=== PATIENT | female | born 1935 | race Caucasian/White ===

== ENCOUNTER → 2016-12-22 | Outpatient (CLI) | payer MEDICARE, OTHER | END | disposition home or self-care (01) | LOC: GMA 16:27 | PROVIDERS: ATTEND Physician Assistant | DX: N39.0 Urinary tract infection, site not specified (principal) ==

== ENCOUNTER → 2017-01-07 | Outpatient (CLI) | payer MEDICARE, OTHER | END | disposition home or self-care (01) | LOC: GMAL 11:00 | PROVIDERS: ATTEND Family Medicine | DX: N39.0 Urinary tract infection, site not specified (principal) ==

== ENCOUNTER → 2017-01-26 | Outpatient (CLI) | payer MEDICARE, OTHER | END | disposition home or self-care (01) | LOC: GMAL 10:18 | PROVIDERS: ATTEND Family Medicine | DX: R53.82 Chronic fatigue, unspecified (principal); D51.3 Other dietary vitamin B12 deficiency anemia; E55.9 Vitamin D deficiency, unspecified ==

== ENCOUNTER → 2017-05-13 | Outpatient (CLI) | payer MEDICARE, OTHER | LOC: BFHH 15:08 | PROVIDERS: ATTEND Family Medicine | DX: R30.0 Dysuria (principal); R39.15 Urgency of urination ==

== ENCOUNTER → 2017-05-18 | Outpatient (CLI) | payer MEDICARE, OTHER | LOC: GMAL 10:31 | PROVIDERS: ATTEND Family Medicine | DX: E55.9 Vitamin D deficiency, unspecified (principal) ==

== ENCOUNTER → 2017-05-28 | Outpatient (CLI) | payer MEDICARE, OTHER | LOC: BFHH 14:16 | PROVIDERS: ATTEND Family Medicine | DX: N39.0 Urinary tract infection, site not specified (principal) ==

== ENCOUNTER → 2017-06-01 | Outpatient (CLI) | payer MEDICARE, OTHER ==
--- NOTE | 2017-06-02 09:54 | MAM ---
EXAM DESCRIPTION: 3D Screening BILATERAL : Digital Mammography. CLINICAL HISTORY: 82 years Female SCREENING . No complaints. No family history breast cancer. Postmenopausal. Taking HRT 5 or more years ago. Left breast biopsy.. COMPARISON: Baseline study at this facility. No prior reports available. TECHNIQUE: Bilateral CC and MLO projection full-field images, 3-D tomosynthesis digital mammographic technique. Also bilateral synthesized CC/ MLO full-field images. CAD not utilized. Technically difficult study because of patient inability to stand and decreased range of motion right shoulder. FINDINGS: The breast parenchymal density pattern is: Scattered areas of fibroglandular density. No skin thickening or nipple retraction bilateral solitary coarse calcifications and microcalcifications. Left axillary lymph nodes. Bilateral vascular calcifications. Focal asymmetry at the 600 clock position of the posterior third of the right breast approximately 8 cm from the nipple near the chest wall. Not associated with microcalcifications.. No focal, stellate mass or density, focal asymmetry , and no suspicious microcalcifications left breast. IMPRESSION: BI-RADS CATEGORY: 0 - INCOMPLETE- Need additional imaging evaluation. FOLLOW-UP: Recall for additional imaging: Bilateral full-field 3-D tomosynthesis LM images. Targeted ultrasound posterior inferior right breast in the region of interest.. Written communication concerning the IMPRESSION and Follow-up, will be mailed to the patient and referring health care provider. Electronically signed by: Charles Harris MD 06/02/2017 9:53 AM [employer]
== END ==
LOC: MAMMO 11:00
PROVIDERS: ATTEND Family Medicine
DX: Z12.31 Encounter for screening mammogram for malignant neoplasm of breast (principal)

== ENCOUNTER → 2017-06-22 | Outpatient (CLI) | payer MEDICARE, OTHER ==
--- NOTE | 2017-06-22 16:35 | US ---
EXAM DESCRIPTION: Breast,Right: Ultrasound CLINICAL HISTORY: 82 yearsFemaleABNORMAL MAMMO. Focal asymmetry posterior right breast. COMPARISON: Digital bilateral 3-D diagnostic tomosynthesis on this visit. Bilateral 3-D tomosynthesis screening 06/01/2017. TECHNIQUE: Transcutaneous scanning of the posterior third right breast utilizing two-dimensional and Doppler modes. Scanning performed by the drywall mechanic and Dr. Harris. FINDINGS: Scanning at the 600-1200 clock position 5 cm from the nipple. Mostly fatty homogeneous echogenicity with scattered fibroglandular tissues. No skin changes. No distinct solid mass. No cyst. No large calcifications. No parenchymal edema. IMPRESSION: 1. Bi-Rads Category 2: Benign. 2. Please refer to bilateral 3-D diagnostic tomosynthesis mammographic examination on this visit. The FINDINGS and the FOLLOW-UP plan were reviewed in person with the patient after the examination. Written communication explaining the IMPRESSION and FOLLOW-UP will be mailed to the patient and referring care provider. Electronically signed by: Charles Harris MD 06/22/2017 4:34 PM CDT
--- NOTE | 2017-06-22 16:35 | MAM ---
EXAM DESCRIPTION: 3D Diagnostic, Bilateral: Digital Mammography CLINICAL HISTORY: 82 yearsFemaleABNORMAL MAMMO . Focal asymmetry posterior right breast.. COMPARISON: Bilateral 3-D tomosynthesis screening study 06/01/2017. Targeted right breast ultrasound following this examination.. Report from prior examination also reviewed. TECHNIQUE: Left LM and right ML projection full-field images, 3-D tomosynthesis digital mammographic technique. Also left synthesized LM and right ML full-field images. CAD not utilized.. Note: patient unable to stand and right arm "frozen shoulder." FINDINGS: The breast parenchymal density pattern is: Scattered areas of fibroglandular density. No skin thickening or nipple retraction focal asymmetry in the posterior right breast at the 600 clock position is not well visualized. ULTRASOUND: Scanning at the 600-1200 clock position 5 cm from the nipple. Mostly fatty homogeneous echogenicity with scattered fibroglandular tissues. No skin changes. No distinct solid mass. No cyst. No large calcifications. No parenchymal edema. IMPRESSION: BI-RADS CATEGORY: 2 - BENIGN FINDINGS. FOLLOW UP: Return to routine digital bilateral screening, one year interval from May 2017. The FINDINGS and the FOLLOW-UP plan were reviewed in person with the patient after the examination. Written communication explaining the IMPRESSION and FOLLOW-UP will be mailed to the patient and referring care provider. According to the [employer], yearly mammograms are recommended starting at age 40 and continuing as long as a woman is in good health. Any breast change noted on a breast self-exam should be reported promptly to the patient's healthcare provider. Breast MRI is recommended for women with an approximately 20-25% or greater lifetime risk of breast cancer, including women with a strong family history of breast or ovarian cancer and women who have been treated for Hodgkin's disease. A negative mammographic report should not delay tissue diagnosis in patients with significant clinical history or physical findings. Extremely dense breast tissue limits the sensitivity of digital mammography. Electronically signed by: Charles Harris MD 06/22/2017 4:35 PM CDT
== END ==
LOC: MAMMO 14:02
PROVIDERS: ATTEND Family Medicine
DX: R92.8 Other abnormal and inconclusive findings on diagnostic imaging of breast (principal)
CPT/HCPCS: 76641; 77066; G0279

== ENCOUNTER → 2018-06-16 | Outpatient (CLI) | payer MEDICARE, OTHER ==
--- NOTE | 2018-06-21 09:55 | MAM ---
EXAM DESCRIPTION: 3D Screening BILATERAL : Digital Mammography. CLINICAL HISTORY: 83 years Female SCREENING . No complaints. No personal or family history of breast cancer. Childbirth. Postmenopausal. No HRT. Prior benign left breast biopsy. Lifetime risk of developing breast cancer (Tyrer-Cuzick model)(%): 1.7. COMPARISON: Bilateral screening digital breast tomosynthesis 06/01/2017. Bilateral diagnostic digital breast tomosynthesis 06/22/2017. TECHNIQUE: Bilateral CC and MLO projection full-field images, digital tomosynthesis mammographic technique. Bilateral digital 2-D full-field MLO images. CAD not available for tomosynthesis or 2-D images. FINDINGS: The breast parenchymal density pattern is: Scattered areas of fibroglandular density. No skin thickening or nipple retraction. Bilateral solitary microcalcifications and coarse calcifications with one small group of microcalcifications in the retroareolar left breast. Left axillary lymph node. Bilateral vascular calcifications. Focal asymmetry lateral to the right nipple in the retroareolar area, best seen on the MLO tomosynthesis. No new focal, stellate mass or density, focal asymmetry , and no suspicious microcalcifications left breast. IMPRESSION: BI-RADS CATEGORY: 0 - INCOMPLETE- Need additional imaging evaluation. FOLLOW-UP: Recall for additional imaging: Orthogonal digital tomosynthesis left breast. Targeted left breast ultrasound of the region of interest.. Written communication concerning the IMPRESSION and Follow-up, will be mailed to the patient and referring health care provider. Electronically signed by: Charles Harris MD 06/21/2018 9:52 AM CDT
== END ==
LOC: MAMMO 13:30
PROVIDERS: ATTEND Family Medicine
DX: Z12.31 Encounter for screening mammogram for malignant neoplasm of breast (principal)

== ENCOUNTER → 2018-08-15 | Outpatient (CLI) | payer MEDICARE, OTHER | LOC: GMAL 10:53 | PROVIDERS: ATTEND Family Medicine | DX: R53.82 Chronic fatigue, unspecified (principal) ==

== ENCOUNTER 2019-04-08 03:18 | Emergency (ER) | payer MEDICARE, OTHER ==
[2019-04-08 03:37] VITALS: O2SAT 94
--- NOTE | 2019-04-08 03:49 | ED.PDOC ---
History of Present Illness - General Chief Complaint: Respiratory Problem Stated Complaint: cough Time Seen by Provider: 04/08/19 03:46 Source: patient, RN notes reviewed, Vital Signs reviewed Additional Information: Patient presents for evaluation of cough and congestion that has been present for two weeks. She does endorse the cough being productive with white to yellowish sputum. She denies any fevers, chills, nausea, vomiting, chest pain or SOB. She lives at an assisted facility and endorses sick contacts. She notes that the cough is improving. - History of Present Illness Allergies/Adverse Reactions: Allergies Amlodipine Allergy (Verified 04/08/19 03:36) Ciprofloxacin [From Cipro] Allergy (Verified 04/08/19 03:36) Penicillin G Allergy (Verified 04/08/19 03:36) Sulfa Antibiotics Allergy (Verified 04/08/19 03:36) Home Medications: Ambulatory Orders ALPRAZolam [Xanax] 0.25 mg PO BEDTIME 04/08/19 Aspirin [Karina Low Dose] 81 mg PO DAILY 04/08/19 Azithromycin Tab [Zithromax Tab] 500 mg PO DAILY 5 Days #10 tab 04/08/19 Brimonidine Tartrate-Timolol M [Combigan 0.2-0.5 %] 1 rosemarie OP BID 04/08/19 HYDROcodone 7.5MG/APAP 325MG [[place] 7.5/325] 1 ea PO PRN 04/08/19 Latanoprost 0.005% Ophth [Xalatan 0.005% Ophthalmic Drops] 2.5 ml OPHTH BEDTIME 04/08/19 Lisinopril 20 mg PO DAILY 04/08/19 Melatonin 5 mg PO PRN 04/08/19 Metoprolol Succinate [Toprol Xl] 25 mg PO BID 04/08/19 Metoprolol Tartrate 50 mg PO BID 04/08/19 Polyethylene Glycol-Propylene [Systane Ultra 0.4-0.3 %] 1 rosemarie OP PRN PRN 04/08/19 Simvastatin 40 mg PO BEDTIME 04/08/19 hydrALAZINE HCl [(None)] 25 mg PO BEDTIME 04/08/19 Review of Systems - Review of Systems Constitutional: Denies: chills, fever EENTM: States: nose congestion Respiratory: States: cough. Denies: short of breath Cardiology: Denies: chest pain Gastrointestinal/Abdominal: Denies: abdominal pain Genitourinary: Denies: frequency Musculoskeletal: Denies: back pain Skin: Denies: rash Neurological: Denies: headache Past Medical History (General) - Patient Medical History Hx Seizures: No Hx Stroke: Yes - 2005 Hx Dementia: No Hx Asthma: No Hx of COPD: No Hx Cardiac Disorders: No Hx Congestive Heart Failure: No Hx Pacemaker: No Hx Hypertension: Yes Hx Thyroid Disease: No Hx Diabetes: No Hx Gastroesophageal Reflux: No Hx Renal Disease: No Hx Cancer: No Hx of HIV: No Hx Hepatitis C: No Hx MRSA: No MRSA Source:: Wound - Vaccination History Hx Tetanus, Diphtheria Vaccination: No Hx Influenza Vaccination: Yes - 2016 Hx Pneumococcal Vaccination: Yes - Social History Hx Tobacco Use: No Hx Chewing Tobacco Use: No Hx Alcohol Use: No Hx Substance Use: No Hx Substance Use Treatment: No Hx Depression: No Hx Physical Abuse: No Hx Emotional Abuse: No - Activities of Daily Living Group Home/Assisted Living (if applicable):: [facility] - Female History Patient is a Female of Child Bearing Age (10 -59 yrs old): No Family Medical History - Family History Mother Family History: Unknown Living Status: Physical Exam - Physical Exam General Appearance: Alert, Comfortable, No apparent distress, Well Developed, Well Groomed, Well Hydrated, Well Nourished ENT Exam: nasal drainage Neck: non-tender, full range of motion, supple, normal inspection Respiratory: lungs clear, normal breath sounds, no respiratory distress, no accessory muscle use, respiratory distress Cardiovascular/Chest: normal peripheral pulses, regular rate, rhythm, no edema, no gallop, no murmur Gastrointestinal/Abdominal: normal bowel sounds, non tender, soft, no organomegaly Extremity: non-tender, no pedal edema, no calf tenderness Neurologic: alert, normal mood/affect, oriented x 3 Progress - Progress Progress: Patient presents for evaluation of coughing. She notes that she feels well, the snf sent her in for evaluation. Exam was not suggestive of underlying pneumonia but given prolonged symptoms, will obtain CXR. CXR was significant for possible retrocardiac infiltrate that is developing pneumonia. Patient is unsure of antibiotic allergies but has documentation in chart of sulfa, penicillins and ciprofloxacin. Will use azithromycin x 5 days. Will follow-up with PCP for re-evaluation. Departure - Departure Clinical Impression: Pneumonia Qualifiers: Pneumonia type: due to unspecified organism Laterality: unspecified laterality Lung location: unspecified part of lung Qualified Code(s): J18.9 - Pneumonia, unspecified organism Time of Disposition: : Disposition: Discharge to Asst Living Condition: Fair Departure Forms: ED Discharge - Pt. Copy, Patient Portal Self Enrollment Instructions: DI for Pneumonia -- Adult Referrals: Gael Nunn III, MD [Primary Care Provider] - 1-2 Weeks Prescriptions: Azithromycin Tab [Zithromax Tab] 500 mg PO DAILY 5 Days #10 tab Home Medications: Ambulatory Orders ALPRAZolam [Xanax] 0.25 mg PO BEDTIME 04/08/19 Aspirin [Karina Low Dose] 81 mg PO DAILY 04/08/19 Azithromycin Tab [Zithromax Tab] 500 mg PO DAILY 5 Days #10 tab 04/08/19 Brimonidine Tartrate-Timolol M [Combigan 0.2-0.5 %] 1 rosemarie OP BID 04/08/19 HYDROcodone 7.5MG/APAP 325MG [[place] 7.5/325] 1 ea PO PRN 04/08/19 Latanoprost 0.005% Ophth [Xalatan 0.005% Ophthalmic Drops] 2.5 ml OPHTH BEDTIME 04/08/19 Lisinopril 20 mg PO DAILY 04/08/19 Melatonin 5 mg PO PRN 04/08/19 Metoprolol Succinate [Toprol Xl] 25 mg PO BID 04/08/19 Metoprolol Tartrate 50 mg PO BID 04/08/19 Polyethylene Glycol-Propylene [Systane Ultra 0.4-0.3 %] 1 rosemarie OP PRN PRN 04/08/19 Simvastatin 40 mg PO BEDTIME 04/08/19 hydrALAZINE HCl [(None)] 25 mg PO BEDTIME 04/08/19
--- NOTE | 2019-04-08 04:31 | RAD ---
EXAM DESCRIPTION: X-ray two view chest. CLINICAL HISTORY: 83 years Female, cough COMPARISON: None. TECHNIQUE: PA and Lateral views of the chest performed on 04/08/2019 at 3:40 AM FINDINGS: The lungs are well expanded and are clear. The costophrenic sulci are clear. There is no evidence of a pneumothorax. There is mild fibrosis and/or atelectasis in the lung bases. The cardiac silhouette is normal in size. There are atherosclerotic calcifications along the thoracic aorta. The mediastinal contours are normal. No acute osseous abnormalities are identified. No focal soft tissue abnormalities are identified. IMPRESSION: No definite acute intrathoracic disease. There is mild fibrosis and/or atelectasis in the lung bases. Electronically signed by: Tessa Farris DO 04/08/2019 4:29 AM [facility]
[2019-04-08 04:44] VITALS: BP 190/84; TEMP 98.2
== END 2019-04-08 04:30 ==
LOC: ER 03:18
DX: J18.9 Pneumonia, unspecified organism (principal); I10 Essential (primary) hypertension; Z86.73 Personal history of transient ischemic attack (TIA), and cerebral infarction without residual deficits; Z79.899 Other long term (current) drug therapy; Z79.82 Long term (current) use of aspirin; Z88.8 Allergy status to other drugs, medicaments and biological substances; Z88.1 Allergy status to other antibiotic agents; Z88.2 Allergy status to sulfonamides; Z88.0 Allergy status to penicillin

== ENCOUNTER → 2019-11-16 | Outpatient (CLI) | payer MEDICARE, OTHER | LOC: GMAL 15:01 | PROVIDERS: ATTEND Family Medicine | DX: R39.15 Urgency of urination (principal) ==

== ENCOUNTER → 2020-01-05 | Outpatient (CLI) | payer MEDICARE, OTHER | LOC: BFHH 11:45 | PROVIDERS: ATTEND Family Medicine | DX: R30.0 Dysuria (principal); E53.8 Deficiency of other specified B group vitamins; E55.9 Vitamin D deficiency, unspecified; I11.0 Hypertensive heart disease with heart failure; I50.30 Unspecified diastolic (congestive) heart failure; J44.9 Chronic obstructive pulmonary disease, unspecified; F32.9 Major depressive disorder, single episode, unspecified; F41.1 Generalized anxiety disorder; E78.5 Hyperlipidemia, unspecified; N39.41 Urge incontinence; B96.1 Klebsiella pneumoniae [K. pneumoniae] as the cause of diseases classified elsewhere; I69.151 Hemiplegia and hemiparesis following nontraumatic intracerebral hemorrhage affecting right dominant side ==

== ENCOUNTER 2020-01-15 05:17 | Day surgery (SDC) | payer MEDICARE, OTHER ==
[2020-01-15] MEDS ORDERED: MIDAZOLAM INJ 2 MG/2 ML VIAL ONE (10:30)
[2020-01-15] MEDS ORDERED: PROPARACAINE 0.5% OPHTH SOL 15 ML BTTL RIGHT_EYE ONE (10:38)
[2020-01-15] MEDS ORDERED: MOXIFLOXACIN HCL (OPHTH) 1 DROP DROPS RIGHT_EYE ONE ×2 (10:50→11:06)
[2020-01-15] MEDS ORDERED: BRIMONIDINE 0.2% OPHTH DROPS RIGHT_EYE ONE ×2 (10:50→11:06)
[2020-01-15] MEDS ORDERED: LIDOCAINE 1% MPF 2 ML VIAL INJ ONE (10:50)
[2020-01-15] MEDS ORDERED: DEXAMETHASONE 0.1% OPHTH SOL 1 DROP RIGHT_EYE ONE ×2 (10:50→11:06)
[2020-01-15] MEDS ORDERED: TOBRAMYCIN SULF 0.3 % OPHT SOL 1 DROP RIGHT_EYE ONE ×2 (10:50→11:06)
== END 2020-01-15 11:46 | disposition home or self-care (01) ==
LOC: AMB 05:17
PROVIDERS: ATTEND Ophthalmology
DX: H25.11 Age-related nuclear cataract, right eye (principal); H40.1113 Primary open-angle glaucoma, right eye, severe stage; I10 Essential (primary) hypertension; Z79.899 Other long term (current) drug therapy
CPT/HCPCS: 00142; 66984; J2250

== ENCOUNTER → 2020-02-26 | Outpatient (CLI) | payer MEDICARE, OTHER | LOC: BFHH 11:54 | PROVIDERS: ATTEND Family Medicine | DX: D51.9 Vitamin B12 deficiency anemia, unspecified (principal); Z48.810 Encounter for surgical aftercare following surgery on the sense organs; I69.151 Hemiplegia and hemiparesis following nontraumatic intracerebral hemorrhage affecting right dominant side; G89.29 Other chronic pain ==